=== PATIENT | male | born 1960 | race Caucasian/White ===

== ENCOUNTER 2018-10-03 06:42 | Inpatient (IN) ==
[~2018-10-03 06:42] MED LIST: CELECOXIB 200 MG CAPSULE PO SCH; PREGABALIN 75 MG CAPSULE PO SCH; ceFAZolin 3 GM in DEXTROSE 5% IN WATER 50 ML IV SCH; oxyCODONE 10 MG TAB.ER.12H PO SCH
[2018-10-03] MEDS ORDERED: HEPARIN 10,000 UNIT/ML VIAL IR ONE (09:16)
[2018-10-03] MEDS ORDERED: HEPARIN 20,000 UNIT/ML VIAL IR ONE (09:17)
[2018-10-03] MEDS ORDERED: ONDANSETRON 4 MG/2 ML VIAL IV ONE (09:45)
[2018-10-03] MEDS ORDERED: LIDOCAINE HCL/PF 100 MG/5 ML SYRINGE IV ONE (09:45)
[2018-10-03] MEDS ORDERED: TRANEXAMIC ACID 1,000 MG/10 ML VIAL IV ONE (09:45)
[2018-10-03] MEDS ORDERED: PHENYLEPHRINE 10 MG/ML VIAL IV ONE (09:45)
[2018-10-03] MEDS ORDERED: MIDAZOLAM 2 MG/2 ML VIAL IV ONE (09:45)
[2018-10-03] MEDS ORDERED: KETAMINE 100 MG/ML ML IV ONE (09:45)
[2018-10-03] MEDS ORDERED: PROPOFOL 200 MG/20 ML VIAL IV ONE (09:45)
[2018-10-03] MEDS ORDERED: GLYCOPYRROLATE 0.2 MG/ML VIAL IV ONE (09:45)
--- NOTE | 2018-10-03 11:24 | Brief Operative Note ---
Date of procedure: 10/03/18 Pre-op diagnosis: R hip severe DJD Post-op diagnosis: same Procedure: Right anterior total hip arthroplasty Grafts/Implants: Yes (Depuy 8 Actis std stem, +1.5 36 delta head, 56 cup, neutral altrx liner) Anesthesia: spinal, GLMA Findings: severe Right hip arthritis Complications: none Surgeon: Joe Cobos Cost Recovery Technician: Cabrera Quinteros Estimated blood loss (cc): 300 Specimens Removed/Pathology: none sent Condition: stable Disposition: PACU
[2018-10-03] MEDS ORDERED: TRANEXAMIC ACID 1,000 MG/10 ML VIAL IV SCH (11:25)
[2018-10-03] MEDS ORDERED: BISACODYL 10 MG SUPP.RECT PR PRN (11:25)
[2018-10-03] MEDS ORDERED: BENZOCAINE/MENTHOL 1 LOZENGE PO PRN (11:25)
[2018-10-03] MEDS ORDERED: POLYETHYLENE GLYCOL 3350 17 GM PACKET PO PRN (11:25)
[2018-10-03] MEDS ORDERED: ONDANSETRON 4 MG/2 ML VIAL IV PRN ×2 (11:25→12:06)
[2018-10-03] MEDS ORDERED: FLEETS ADULT ENEMA PR PRN (11:25)
[2018-10-03] MEDS ORDERED: MAGNESIUM HYDROXIDE 30 ML ORAL.SUSP PO PRN (11:25)
[2018-10-03] MEDS ORDERED: LORATADINE 10 MG TABLET PO PRN (11:31)
[2018-10-03] MEDS ORDERED: MEPERIDINE 25 MG/ML SYRINGE IV PRN (12:06)
[2018-10-03] MEDS ORDERED: METHOCARBAMOL 1,000 MG/10 ML VIAL IV PRN (12:06)
[2018-10-03] MEDS ORDERED: IPRATROPIUM/ALBUTEROL 3 ML AMPUL.NEB NEB PRN (12:06)
[2018-10-03] MEDS ORDERED: ACETAMINOPHEN 1,000 MG/100 ML BOTTLE IV ONE (12:06)
[2018-10-03] MEDS ORDERED: fentaNYL 100 MCG/2 ML VIAL IV PRN (12:06)
[2018-10-03] MEDS ORDERED: LACTATED RINGERS 1,000 ML IV SCH (12:15)
[2018-10-03] MEDS ORDERED: ePHEDrine 50 MG/ML AMPUL IV ONE (12:19)
--- NOTE | 2018-10-03 12:57 | XRay Report ---
CLINICAL INFORMATION: Postsurgical follow-up TECHNIQUE: AP pelvis. AP and lateral right hip COMPARISON: Preoperative evaluation dated 03/02/2018 FINDINGS: Status post right total hip arthroplasty. Normal anatomic alignment. There is postsurgical soft tissue gas. There are skin hannah present. IMPRESSION: Right total hip arthroplasty Interpreted and Authenticated by: Milton Lawton 10/03/18
--- NOTE | 2018-10-03 13:57 | Operative Note ---
DATE OF OPERATION: 10/03/2018 PREOPERATIVE DIAGNOSIS: Right hip severe osteoarthritis. POSTOPERATIVE DIAGNOSIS: Right hip severe osteoarthritis. PROCEDURE PERFORMED: Right anterior total hip arthroplasty placing a DePuy Actis size 8 standard offset femoral stem, a +1.5, 36 mm delta ceramic head, a 56 [place] cup with a neutral AltrX liner. SURGEON: Joe Cobos MD LEAD PRESSER: Jim Quinteros PA-C ANESTHESIA: Spinal plus general. DRAINS: Medium Hemovac hooked to OrthoPAT suction. BLOOD LOSS: 350 mL COMPLICATIONS: None. POSTOPERATIVE CONDITION: Stable. INDICATIONS FOR SURGERY: This is a 58-year-old male who has had longstanding progressive worsening severe right hip pain. Radiographs showed [id number] osteoarthritis. FINDINGS AT SURGERY: Severe arthritis. Post implantation showed good overall leg length and offset methodist and component position. PROCEDURE IN DETAIL: The patient had been seen preoperatively and informed consent had been obtained after discussion of risks, benefits of surgery. Risks including, but not limited to, bleeding, possibly requiring transfusion; infection, possibly requiring implant removal and prolonged IV antibiotics; injury to nerves, blood vessels other surrounding structures; anesthetic risks; incomplete or no resolution of symptoms; DVT and pulmonary embolus risks, leg length discrepancy, dislocation; fracture; possibility of needing further revision surgery. He understood and wished to proceed. Correct operative site was marked and the patient received spinal anesthesia. He was then taken to the operating room and LMA general given. He was carefully positioned on the fracture table and the right hip and groin were carefully prepped and draped in normal sterile fashion. Timeout was performed verifying patient name, operative site, and plan. Ioban was used to cover all skin surfaces and then a standard anterior approach incision was made with a scalpel through skin and subcutaneous tissue. Hemostasis was obtained with Bovie cautery. Careful blunt dissection was taken down on the tensor fascia and this was undermined circumferentially. IrriSept was irrigated and then a ring retractor was placed. The tensor fascia was incised in line with the muscle fibers and then careful blunt dissection was taken medial to the muscle belly. The tensor muscle belly was quite large. We went ahead and placed blunt cobra retractors on the superior and inferior neck. Circumflex vessels were coagulated and cut and vastus fascia split distally. An anterior capsulectomy was performed and then traction was placed on the leg. Capsule releases were taken out to the trochanters and then a corkscrew was placed in the femoral head. Osteotome was used under fluoro to identify our neck cut. Oscillating tip saw was used to make our osteotomy. Acetabulum was exposed. Bone wax was placed on the cut neck surface to decrease bleeding. Bovie was used to excise labrum circumferentially as well as the soft tissue from the floor of the acetabulum and then we began reaming under fluoro directly medializing down to the tear drop initially and then increasing reamer size and angle until a 55 reamer got rim ream. We went ahead and opened a 56 3-hole [place] cup. The acetabulum was irrigated with IrriSept, after a minute was copiously pulse lavaged with saline. We then used the [id number] to impact the cup at approximately 35 to 40 degrees of inclination and about 30 degrees of anteversion. We did get good pressfit, so we went ahead and placed a center hole cover. I used a curved osteotome to remove anterior osteophyte and then a neutral AltrX liner was carefully aligned and impacted and tabs were carefully checked to verify flush seating. We then removed traction from the leg and externally rotated it. We released capsule around the medial and posterior neck all the way down to the lesser trochanter. The leg was then extended and adducted without traction. We used the Bovie to release capsule out towards the greater trochanter. After we had adequate proximal femur exposure, we used a box osteotome to gain canal entry. An awl was used to identify canal trajectory. Rongeur and rasp were used to lateralize and then we began sequentially broaching with the [id number] up to a size 7. This seated just below our neck cut. We used a calcar planer. We then trialed with a high offset neck trial and a +1.5 head ball. The hip was reduced and fluoro images were taken, AP pelvis was used to verify neutral rotation and then the AP of the operative and nonoperative hips were taken and overlaid. The x-rays showed the leg lengths were symmetrical; however, the offset appeared to be increased with the operative side so we went ahead and redislocated. I was able to impact a size 7 Actis down below our neck cut, so I went ahead and broached up to a size 8. We then removed the broach and opened a size 8 standard offset femoral stem. IrriSept was irrigated down the femoral canal. After a minute we pulse lavaged copiously irrigated with saline. The stem was then impacted and seated with the collar on the neck cut. We then opened a 1.5 head ball. The stem was carefully cleaned and dried and then the head ball was briskly impacted with the [id number]. The hip was then reduced. Final fluoro images were taken. There was some steady oozing from the wound, so I did go ahead and place an 1/8 inch Hemovac out distal lateral. After IrriSept irrigation we did pulse lavage with saline and then tensor fascia was closed with two running ___ ___. We pulse lavaged with saline and then fat was tacked to fascia with Vicryl and then 2-0 Monocryl used for subcutaneous and hannah for skin. Xeroform sterile dressings were applied. The patient was then awakened, extubated, and transferred to recovery in stable condition. [email or web address]:alyce Job ID: [id number] Doc ID: [id number] Joe Cobos MD
[2018-10-03] MEDS: 0.9 % SODIUM CHLORIDE 10 ML SYRINGE IV SCH ×2 (14:43→22:18)
[2018-10-03] MEDS: HYDROcodone/APAP 10/325MG TABLET PO PRN ×3 (14:43→19:51)
[2018-10-03] MEDS: 0.9 % SODIUM CHLORIDE 1,000 ML IV SCH ×2 (15:04→21:49)
[2018-10-03] MEDS: KETOROLAC 30 MG/ML VIAL IV PRN ×2 (16:37→22:13)
[2018-10-03] MEDS ORDERED: ceFAZolin 1 GM VIAL IV SCH (17:00)
--- NOTE | 2018-10-03 17:30 | XRay Report ---
CLINICAL INFORMATION: Right hip replacement TECHNIQUE: 0.4 minutes fluoroscopy utilized by Dr. Cobos. Intraoperative spot films obtained IMPRESSION: Intraoperative fluoroscopy utilized for right total hip arthroplasty Interpreted and Authenticated by: Milton Lawton 10/03/18
[2018-10-03] MEDS: ceFAZolin 3 GM in DEXTROSE 5% IN WATER 50 ML IV SCH (17:38)
[2018-10-03] MEDS: DOCUSATE SODIUM 100 MG CAPSULE PO SCH (20:23)
[2018-10-03] MEDS: ASPIRIN 81 MG TAB.CHEW PO SCH (20:24)
[2018-10-03] MEDS ORDERED: SENNOSIDES 1 TABLET PO SCH (21:00)
[2018-10-04] MEDS: HYDROcodone/APAP 10/325MG TABLET PO PRN ×2 (00:10→06:36)
[2018-10-04] MEDS: ceFAZolin 3 GM in DEXTROSE 5% IN WATER 50 ML IV SCH (00:11)
[2018-10-04] MEDS: 0.9 % SODIUM CHLORIDE 10 ML SYRINGE IV SCH (04:01)
[2018-10-04] MEDS: KETOROLAC 30 MG/ML VIAL IV PRN (04:01)
--- NOTE | 2018-10-04 07:05 | Discharge Summary ---
Providers - Providers Patient information: Note initiated : 10/04/18 at 7:01 am Service Date, if different from initiated Date: [] Patient: Corey Arroyo 58 y/o M admitted on 10/03/18 for Right Total Hip Arthroplasty . Chief Complaint: [] Discharge date: 10/04/18 Hospitalization Hospital course: Pt was admitted for a LUL. Pt underwent the procedure on the day of admission. Pt spent one night on the floor for IV pain meds, IV abx, and PT. Pt will take ASA for DVT prophylaxis and attend out-pt PT. Will f/u in 2 weeks. Discharge diagnosis: R hip OA Exam - Exam Clean and dry: Yes Weight bearing status: as tolerated Ortho Discharge - LUL - Patient Instructions Diet: Regular Diet Activity: activity as tolerated Total Hip Protocol: Follow activity instructions as provided by Physical Therapy. 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] - Disposition: Home, Self-Care Prognosis: Good Rehab Potential: Good Overall status at discharge: patient is back to baseline - Orders For Discharge Prescriptions: Aspirin 81 mg PO BID #60 tab.chew traMADol [Ultram] 50 - 100 mg PO Q4-6HP PRN #75 tab PRN Reason: Pain Pending Studies Resuscitation Status Full Code Diet Consistent Carbohydrate Diet Start MonOctober 03 112 Hydrocodone Bitart/Acetaminophen (Maria Stein 10/325mg) 0 tab PO Q4HP PRN PRN Reason: PAIN LEVEL 3-6 Last Admin: 10/04/18 06:36 Dose: 2 tab Documented by: Admin: 10/04/18 00:10 Dose: 2 tab Documented by: Admin: 10/03/18 19:51 Dose: 2 tab Documented by: Admin: 10/03/18 15:32 Dose: 1 tab Documented by: Admin: 10/03/18 14:43 Dose: 1 tab Documented by: JANEE Aspirin (Aspirin) 81 mg PO BID [facility] Last Admin: 10/03/18 20:24 Dose: 81 mg Documented by: LINO Docusate Sodium (Colace) 100 mg PO BID [facility] Last Admin: 10/03/18 20:23 Dose: 100 mg Documented by: LINO Ketorolac Tromethamine (Toradol) 30 mg IV Q6HP PRN PRN Reason: Pain Stop: 10/05/18 11:29 Last Admin: 10/04/18 04:01 Dose: 30 mg Documented by: Admin: 10/03/18 22:13 Dose: 30 mg Documented by: Admin: 10/03/18 16:37 Dose: 30 mg Documented by: JANEE Senna (Senokot) 2 tab PO HS POP Last Admin: 10/03/18 20:23 Dose: 2 tab Documented by: LINO Sodium Chloride (Saline Flush) 10 ml IV Q8 POP Last Admin: 10/04/18 04:01 Dose: 10 ml Documented by: Admin: 10/03/18 22:18 Dose: 10 ml Documented by: Admin: 10/03/18 14:43 Dose: Not Given Documented by: JANEE Shift Summary 10/04/18 04:58 Shift Summary by Ruth Winter VSSena. A&Ox4. Medicated for pain with IV Toradol x 2, Maria Stein 10-325 two tabs x2. Pt. reports pain tolerable. Up with FWW and SBA to bathroom. Voiding per urinal; urine clear dark yellow. IV to L hand is SL. Ortho pat drain to R hip with 0 output tonight; disconnect after 24 hours from initiation. Dressing to R hip is C/D/I. Initialized on 10/04/18 04:58 - END OF NOTE
[2018-10-04] MEDS ORDERED: CALCIUM CARBONATE 500 MG TAB.CHEW CHEWED PRN (07:17)
[2018-10-04] MEDS: ASPIRIN 81 MG TAB.CHEW PO SCH (08:20)
[2018-10-04] MEDS: DOCUSATE SODIUM 100 MG CAPSULE PO SCH (08:21)
[2018-10-04] MEDS ORDERED: LISINOPRIL 10 MG TABLET PO SCH (09:00)
[2018-10-04] MEDS ORDERED: amLODIPine 5 MG TABLET PO SCH (09:00)
[2018-10-04] MEDS ORDERED: HYDROCHLOROTHIAZIDE 25 MG TABLET PO SCH (09:00)
== END 2018-10-04 09:55 | disposition home or self-care (01) | DRG 470 ==
LOC: MEDSUR 06:42
PROVIDERS: ADMIT Orthopaedic Surgery; ATTEND Orthopaedic Surgery